=== PATIENT | male | born 1950 | race African-American/Black ===

== ENCOUNTER 2017-05-25 15:49 | Emergency (ER) | payer MEDICARE, OTHER ==
[~2017-05-25] VITALS: Ht 180.3 cm; Wt 80.0 kg
[2017-05-25] MEDS ORDERED: ASPI81TA39 PO (16:08)
[2017-05-25] MEDS ORDERED: KETOROLAC TROMETHAMINE 60 MG/2 ML VIAL IM ONE (17:15)
[2017-05-25 18:06] VITALS: BP 144/86
== END 2017-05-25 19:14 | disposition home or self-care (01) ==
LOC: EMS 16:02
DX: S60.211A Contusion of right wrist, initial encounter (principal); S60.221A Contusion of right hand, initial encounter; R03.0 Elevated blood-pressure reading, without diagnosis of hypertension; Z87.891 Personal history of nicotine dependence; V19.9XXA Pedal cyclist (driver) (passenger) injured in unspecified traffic accident, initial encounter; Y93.89 Activity, other specified; Y92.89 Other specified places as the place of occurrence of the external cause; Y99.8 Other external cause status
CPT/HCPCS: 29125; 73110; 73130; 96372; 99284; J1885